=== PATIENT | male | born 1990 | race Hispanic/Latino ===

== ENCOUNTER 2016-05-23 17:43 | Emergency (ER) | payer SELFPAY ==
[2016-05-23 17:51] VITALS: PULSE 88; RESP 20; TEMP 97.9; O2SAT 99
[2016-05-23] MEDS ORDERED: Lidocaine 1% Inj (20ml) IJ ONE (17:54)
[2016-05-23] MEDS ORDERED: Lidocaine 1% Inj (20ml) ONE (17:54)
[2016-05-23 17:55] VITALS: BMI 20.3
--- NOTE | 2016-05-23 17:57 | ED PDOC ---
HPI: Skin/Bite Injury Time Seen by Provider: 05/23/16 17:50 Chief Complaint (Nursing): Lower Extremity Problem/Injury Chief Complaint (Provider): Leg laceration History Per: Patient Additional Complaint(s): Pt. states earlier today he accidentally cut himself with a pocket knife on his R leg causing a laceration. Denies FB sensation, numbness, tingling. Past Medical History Reviewed: Historical Data, Nursing Documentation, Vital Signs Vital Signs: Last Vital Signs Temp 97.9 F 05/23/16 17:47 Pulse 88 05/23/16 17:47 Resp 20 05/23/16 17:47 BP Pulse Ox 99 05/23/16 17:58 - Family History Family History: States: No Known Family Hx - Immunization History Hx Tetanus Toxoid Vaccination: Yes (~8 years ago) - Allergies Allergies/Adverse Reactions: Allergies Allergy/AdvReac Type Severity Reaction Status Date / Time Penicillins Allergy RASH Verified 05/23/16 17:54 Review of Systems ROS Statement: Except As Marked, All Systems Reviewed And Found Negative Musculoskeletal: Positive for: Leg Pain Physical Exam - Physical Exam Appears: Positive for: Well, Non-toxic, No Acute Distress Skin: Positive for: Normal Color, Warm. Negative for: Rash Extremity: Positive for: Normal ROM, Other (R proximal lateral leg with 1cm linear superficial laceration without active bleeding) Neurologic/Psych: Positive for: Alert, Oriented - ECG O2 Sat by Pulse Oximetry: 99 Disposition - Clinical Impression Clinical Impression: Leg laceration - Patient ED Disposition Is Patient to be Admitted: No - Disposition Disposition: Routine/Home Disposition Time: 18:47 Condition: STABLE Additional Instructions: Suture removal in 7 days. Instructions: Care For Your Stitches (ED) Laceration - Laceration Repair Leg laceration Wound Length (In cm): 12 in Description Of Wound: Linear Wound Cleansed With: Betadine, Sterile Saline Anesthesia: Lidocaine 1% Wound Examination: Irrigated With Saline Wound Closure: Suture (proline 4-0 (5)) Suture Technique And Material Used: Running Wound Complexity: Simple
[2016-05-23] MEDS ORDERED: Povidone Iodine Topical 10% Sol ONE (18:16)
[2016-05-23 19:23] VITALS: BP 120/74
== END 2016-05-23 19:23 | disposition home or self-care (01) ==
LOC: H.ER 17:43
DX: S81.819A Laceration without foreign body, unspecified lower leg, initial encounter (principal); W26.0XXA Contact with knife, initial encounter; Y92.89 Other specified places as the place of occurrence of the external cause